=== PATIENT | male | born 1975 | race Two or more races ===

== ENCOUNTER 2021-03-16 21:34 | Emergency (ER) | payer OTHER ==
[~2021-03-16] VITALS: Ht 165.1 cm; Wt 90.0 kg
--- NOTE | 2021-03-16 21:50 | PHYS DOC ---
Adult General Chief Complaint Chief Complaint: FEVER HPI HPI Patient is a otherwise healthy 45-year-old male who presents from [facility], with [facility] for chief complaint of 2weeks shortness of breath. States over the last 2 weeks he has had feelings of shortness of breath and has had fevers around 101 101. States he was treated with Z-Keanu about a week ago but did not seem to help. Denies headache, pain or trouble swallowing, neck pain, chest pain, abdominal pain, nausea, vomiting, diarrhea, dysuria, hematuria or blood in the stool. Denies any alcohol or drug use. Denies any known ill contacts but states he is in [facility]. States he is eating and drinking normally for him. States he is making urine and stool normally for him. Denies any history of VTE. Denies any family history of heart attack or stroke at his age. Denies any history of smoking. Does endorse some dyspnea on exertion, but denies orthopnea, PND or edema. Review of Systems Review of Systems Review of systems otherwise unremarkable except noted in HPI Physical Exam Physical Exam Constitutional: Well developed, well nourished, no acute distress, non-toxic appearance. [] HENT: Normocephalic, atraumatic, bilateral external ears normal,oropharynx moist, no oral exudates, Eyes: conjunctiva normal, no discharge. [] Neck: Normal range of motion, no tenderness, supple, no stridor. [] Cardiovascular:Heart rate regular rhythm, no murmur [] Lungs & Thorax: Global, very mild rhonchi with end expiratory wheeze, tachypnea with saturations around 94% on room air Abdomen: soft, no tenderness, no masses, no pulsatile masses. [] Skin: Warm, dry, no erythema, no rash. [] Back: no CVA tenderness. [] Extremities: No tenderness, ROM intact, no edema. [] Neurologic: Alert and oriented X 3, normal motor function, normal sensory function, no focal deficits noted. [] Psychologic: Affect normal, mood normal. [] EKG EKG [] Radiology/Procedures Radiology/Procedures [] Heart Score C/O Chest Pain: No Risk Factors: Risk Factors: DM, Current or recent (<one month) smoker, HTN, HLP, family history of CAD, obesity. Risk Scores: Risk Factors: DM, Current or recent (<one month) smoker, HTN, HLP, family history of CAD, obesity. Course & Med Decision Making Course & Med Decision Making Patient is a 45-year-old male who presents with 2 weeks of shortness of breath Vital signs notable for fever, hypertension and tachycardia. Physical exam noted above. EKG noted above with no STEMI. Troponin normal. D-dimer normal. Given Tylenol, breathing treatment and steroids. Given cough syrup. Laboratory analysis not concerning. Chest x-ray with no obvious findings but appears abnormal. CT of the chest with areas of patchy groundglass opacities suggestive of multifocal pneumonitis with infectious or inflammatory etiology and mediastinal and bilateral axillary lymphadenopathy suggestive of something reactive, metastatic versus degenerative lymphoma. Indication for repeat CT or biopsy. Given patient's hypoxia/dyspnea on exertion with oxygen saturations drop in to 80% on room air when walking, and tachypnea with respiratory rate around 35 patient started on antibiotics for pneumonia, with initial rapid Covid swab negative. Discussed all findings with patient and recommended admission to the hospital for continued evaluation and treatment of his technical sepsis, secondary to probably viral or bacterial pneumonia not ruling out fungal or neoplasm. Patient grateful, verbalized understanding and agreed with plan of admission. No beds available at [facility] or . Patient accepted at [place]. [] Dragon Disclaimer Dragon Disclaimer This electronic medical record was generated, in whole or in part, using a voice recognition dictation system. Departure Departure: Impression: Primary Impression: Dyspnea on exertion Additional Impressions: Hypoxia Pneumonia Disposition: ADMITTED INPATIENT Admitting Physician: Leila Phelps Condition: STABLE Referrals: PCP,NO (PCP) Problem Qualifiers TURNER MERRITT MD Mar 16, 2021 21:50
[2021-03-16] MEDS ORDERED: IV RINGERS SOLUTION,LACTATED 1,000 ML IV ONE (22:00)
[2021-03-16] MEDS ORDERED: ACETAMINOPHEN 500 MG TABLET PO ONE (22:00)
[2021-03-16] MEDS ORDERED: guaiFENesin/CODEINE 100mg/10mg 5 ML LIQUID PO PRN (22:30)
[2021-03-16 22:40] LABS: BASO # 0.1 x10^3/uL (0.0-0.2); BASO % 1 % (0-3); EOS # 1.7 x10^3/uL (0.0-0.7); EOS % 15 % (0-3); HEMATOCRIT 44.2 % (39.0-53.0); HEMOGLOBIN 14.3 g/dL (13.0-17.5); LYMPH # 1.5 x10^3/uL (1.0-4.8); LYMPH % 13 % (24-48); MEAN CORPUSCULAR HEMOGLOBIN 26 pg (25-35); MEAN CORPUSCULAR HGB CONC 33 g/dL (31-37); MEAN CORPUSCULAR VOLUME 80 fL (79-100); MONO # 1.1 x10^3/uL (0.0-1.1); MONO % 10 % (0-9); NEUT # 6.9 x10^3uL (1.8-7.7); NEUT % 61 % (31-73); PLATELET COUNT 175 x10^3/uL (140-400); RED BLOOD COUNT 5.53 x10^6/uL (4.30-5.70); WHITE BLOOD COUNT 11.2 x10^3/uL (4.0-11.0)
[2021-03-16] MEDS ORDERED: IPRATRPIUM/ALBUTEROL 0.5/2.5MG 3 ML NEBU. NEB ONE (22:45)
[2021-03-16] MEDS ORDERED: DEXAMETHASONE 4 MG TABLET PO ONE (22:45)
[2021-03-16 22:52] LABS: CREATININE 0.9 mg/dL (0.7-1.3); GFR 90.4
[2021-03-16 23:02] LABS: ALBUMIN 3.7 g/dL (3.4-5.0); ALBUMIN/GLOBULIN RATIO 0.9 (1.0-1.7); MAGNESIUM 2.3 mg/dL (1.8-2.4); TOTAL BILIRUBIN 0.5 mg/dL (0.2-1.0); TOTAL PROTEIN 7.6 g/dL (6.4-8.2)
--- NOTE | 2021-03-17 00:06 | RAD ---
XR CHEST 1V 03/16/2021 11:09 PM INDICATION: Cough, fever COMPARISON: None available TECHNIQUE: Portable frontal view of the chest is provided. FINDINGS: The cardiomediastinal silhouette is within normal limits. Mild perihilar interstitial changes are not ed. There are no significant pleural effusions. There is no pulmonary vascular congestion. No pneumothora x. No suspicious osseous abnormality. IMPRESSION: Mild perihilar interstitial changes. Findings favor interstitial pneumonitis in the appropriate clini akbar setting. Short-term follow-up radiograph could be of benefit. Electronically signed by: Rhiannon Burnette MD (03/17/2021 12:04 AM) [facility]
[2021-03-17 00:10] VITALS: BP 157/88
--- NOTE | 2021-03-17 00:24 | RAD ---
PQRS Compliance Statement: One or more of the following individualized dose reduction techniques were utilized for this examinat ion: 1. Automated exposure control 2. Adjustment of the mA and/or kV according to patient size 3. Use of iterative reconstruction technique CT THORAX WO 03/16/2021 11:47 PM Indication: Shortness of breath, fever COMPARISON: None available. TECHNIQUE: Multiple axial CT images of the chest were obtained without intravenous contrast. Coronal and sagittal reformats were provided. FINDINGS: Thyroid gland is normal in appearance. Left axillary lymph nodes are borderline enlarged measuring up to 1.4 cm (series 2, image 39). Right axillary lymph nodes are enlarged measuring up to 1.4 cm (series 2, image 33). Right superior paratra cheal lymph node measures 1.2 cm. Precarinal lymph node measures 1.9 cm. AP window lymph node measure s 1.3 cm. No definite hilar lymphadenopathy. Left paraesophageal lymph node measures 0.7 cm (series 2 , image 47). Borderline lymphadenopathy identified at the neck base. Heart size is within normal limi ts. Thoracic aorta is normal in course and caliber. There is no significant pericardial effusion. Tho racic esophagus is normal in appearance. Anterior chest wall appears intact. No suspicious solid noncalcified pulmonary nodule. There are no pleural effusions, pulmonary vascular congestion or pneumothorax. Mild bronchial wall thickening compatible with nonspecific bronchitis. P atchy central glass opacities are identified, mild. Central airways are clear. There is an ill-defined hypoattenuating lesion within the right hepatic lobe measuring 4.0 x 4.1 cm ( 39 Hounsfield units). Cholecystectomy changes are present. No suspicious osseous abnormality. No paraspinal soft tissue mass. IMPRESSION: Mild central patchy ground glass opacities may reflect multifocal pneumonitis of infectious/inflammat ory etiology. Mediastinal and bilateral axillary lymphadenopathy may be reactive, metastatic versus degenerative ly mphoma. Three-month follow-up chest CT or tissue sampling can be of benefit as clinically warranted. PET CT could be of benefit. There is an ill-defined hypoattenuating lesion within the right hepatic lobe measuring 4.0 x 4.1 cm ( 39 Hounsfield units). This finding is indeterminate by noncontrast CT and further evaluation with abd ominal MRI with and without contrast is recommended. Electronically signed by: Rhiannon Burnette MD (03/17/2021 12:21 AMHerbert [facility]
--- NOTE | 2021-03-17 03:19 | EKG ---
[address] [address] Test Date: 2021-03-16 Test Time: 21:50:57 Pat Name: MAMADOU SPENCE Department: Room: Gender: M Filling Machine Operator: ALEX : 1975 Requested By: TURNER MERRITT Order Number: [id number] Reading MD: Luigi Lowry Measurements Intervals [place] Rate: 91 P: 30 WV: 154 QRS: -41 QRSD: 94 T: 17 QT: 340 QTc: 420 Interpretive Statements SINUS RHYTHM ABNORMAL LEFT AXIS DEVIATION LEFT ANTERIOR FASCICULAR BLOCK ABNORMAL ECG RI6.02 No previous ECG available for comparison Electronically Signed On 03-17-2021 12:41:55 CDT by Luigi Lowry
[2021-03-17 06:57] LABS: BILIRUBIN,URINE NEG (NEG); CLARITY,URINE HAZY; COLOR,URINE YELLOW; GLUCOSE,URINE NEG (NEG); NITRITE,URINE NEG (NEG); RBC,URINE 0 /HPF (0-2); UROBILINOGEN,URINE 0.2 mg/dL (0.2 mg/dL); WBC,URINE 0 /HPF (0-4)
[2021-03-17 06:58] LABS: AMORPHOUS SEDIMENT,UR PRESENT /HPF; BACTERIA,URINE FEW /HPF (0-FEW); SQUAMOUS EPITHELIAL CELL,UR OCC /LPF
[2021-03-17 07:32] LABS: BARBITURATES NEG (NEG); BENZODIAZEPINES NEG (NEG); CANNABINOIDS NEG (NEG); COCAINE NEG (NEG); METHADONE NEG (NEG); OPIATES NEG (NEG); PHENCYCLIDINE NEG (NEG)
[2021-03-17 07:34] LABS: AMPHETAMINE/METHAMPHETAMINE NEG (NEG)
== END 2021-03-17 02:07 | disposition short-term general hospital (02) ==
LOC: ER 21:34
DX: J18.9 Pneumonia, unspecified organism (principal); R09.02 Hypoxemia; R06.09 Other forms of dyspnea; Z20.822 Contact with and (suspected) exposure to COVID-19
CPT/HCPCS: 36415; 71045; 71250; 80053; 80307; 81001; 83605; 83735; 84484; 85025; 85379; 87040; 87426; 93005; 94640; 96361; 96365; 99285; C9803; J1956; J7120; J8540; U0003

== ENCOUNTER 2021-07-06 15:18 | Emergency (ER) | payer OTHER ==
[~2021-07-06] VITALS: Ht 162.6 cm; Wt 86.3 kg
[2021-07-06] MEDS ORDERED: IPRATRPIUM/ALBUTEROL 0.5/2.5MG 3 ML NEBU. NEB ONE ×2 (15:45→17:45)
--- NOTE | 2021-07-06 16:04 | PHYS DOC ---
Past History Past Surgical History: Other Additional Past Surgical Histo: LIPOMA REMOVAL (MCKENZIE ANAND APRN) Alcohol Use: None (MCKENZIE ANAND APRN) General Adult EDM: Chief Complaint: CONGESTION HPI: HPI: Patient is a 45-year-old male who presents to the emergency department for chronic cough and nasal drainage. Patient reports that he has had a clear/yellow productive cough with nasal drainage since February of last year after being diagnosed with pneumonia and an ICU stay. Patient reports the postnasal drainage is so severe it causes him to choke and causes a hoarse voi ce. Patient reports that he has had intermittent sinus infections. He reports taking Mucinex and Sudafed for his symptoms. He states that he has a sinus abnormality and has a CT scan ordered for his sinuses. Patient does use a CPAP as needed at night. Patient is also reporting loss of taste or smell but states that has been present since getting his [place] booster in January 2021. Patient denies any vomiting or chest pain. Does report occasional shortness of breath (MCKENZIE ANAND APRN) Review of Systems: Review of Systems: Constitutional: negative unless reported in HPI Eyes: negative unless reported in HPI HENT: negative unless reported in HPI Respiratory: negative unless reported in HPI Cardiovascular: negative unless reported in HPI GI: negative unless reported in HPI : negative unless reported in HPI Musculoskeletal: negative unless reported in HPI Integument: negative unless reported in HPI Neurologic: negative unless reported in HPI Endocrine: negative unless reported in HPI Lymphatic: negative unless reported in HPI Psychiatric: negative unless reported in HPI (MCKENZIE ANAND APRN) Current Medications: Current Meds: Current Medications Medications (Trade) Dose Ordered Sig/Frannie Start Time Stop Time Status Last Admin Dose Admin Albuterol/ Ipratropium (Duoneb) 3 ml 1X ONCE 07/06/21 15:45 07/06/21 15:46 UNV (MCKENZIE ANAND APRN) Allergies: Allergies: Allergies Coded Allergies Type Severity Reaction Last Updated Verified blue dye Allergy Severe anaphylaxis 07/06/21 Yes red dye Allergy Severe anaphylaxis 07/06/21 Yes (MCKENZIE ANAND APRN) Physical Exam: PE: Constitutional: Well developed, well nourished, no acute distress, non-toxic appearance. [] HENT: Normocephalic, atraumatic, bilateral external ears normal, post nasal drainage, no sinus pain with palpation, oropharynx moist, no oral exudates, nose normal. [] Eyes: PERRL, EOMI, conjunctiva normal, no discharge. [] Neck: Normal range of motion, no tenderness, supple, no stridor. [] Cardiovascular:Heart rate regular rhythm, no murmur [] Lungs & Thorax: wheezing noted throughout lung ordonez Abdomen: Bowel sounds normal, soft, no tenderness, no masses, no pulsatile masses. [] Skin: Warm, dry, no erythema, no rash. [] Back: Normal ROM Extremities: No tenderness, no cyanosis, no clubbing, ROM intact, no edema. [] Neurologic: Alert and oriented X 3, normal motor function, normal sensory function, no focal deficits noted. [] Psychologic: Affect normal, judgement normal, mood normal. [] (MCKENZIE ANAND APRN) Current Patient Data: Labs: Laboratory Tests Test 07/06/21 15:50 Influenza Type A (Rapid) Negative Influenza Type B (Rapid) Negative SARS-CoV-2 Antigen (Rapid) Negative Current Medications Medications (Trade) Dose Ordered Sig/Frannie Route PRN Reason Start Time Stop Time Status Last Admin Dose Admin Albuterol/ Ipratropium (Duoneb) 3 ml 1X ONCE NEB 07/06/21 15:45 07/06/21 15:51 DC 07/06/21 16:02 Albuterol Sulfate (Ventolin) 10 mg 1X ONCE CONT NEB 07/06/21 17:30 07/06/21 17:38 DC Albuterol/ Ipratropium (Duoneb) 3 ml 1X ONCE NEB 07/06/21 17:45 07/06/21 17:46 DC 07/06/21 17:41 Prednisone (Prednisone) 60 mg 1X ONCE PO 07/06/21 18:00 07/06/21 18:01 DC Vital Signs: Vital Signs Date Time Temp Pulse Resp B/P (MAP) Pulse Ox O2 Delivery O2 Flow Rate FiO2 07/06/21 15:35 98.2 82 20 134/80 (98) 96 Room Air (MCKENZIE ANAND APRN) EKG: EKG: [] (MCKENZIE ANAND APRN) Radiology/Procedures: Radiology/Procedures: []PROCEDURE: CHEST PA & LATERAL EXAM: Chest, 2 views. HISTORY: Cough. COMPARISON: 03/16/2021. FINDINGS: 2 views of the chest are obtained. There is no infiltrate, pleural infusion or pneumothorax. IMPRESSION: No acute pulmonary finding. Electronically signed by: Analilia Morales MD (07/06/2021 4:29 PM) [facility] DICTATED AND SIGNED BY: ANALILIA MORALES MD DATE: 07/06/21 1627 CC: MCKENZIE ANAND APRN; PCP,NO ~MTH0 0 (MCKENZIE ANAND APRN) Heart Score: C/O Chest Pain: No Risk Factors: Risk Factors: DM, Current or recent (<one month) smoker, HTN, HLP, family history of CAD, obesity. Risk Scores: Score 0 - 3: 2.5% MACE over next 6 weeks - Discharge Home Score 4 - 6: 20.3% MACE over next 6 weeks - Admit for Clinical Observation Score 7 - 10: 72.7% MACE over next 6 weeks - Early Invasive Strategies (MCKENZIE ANAND APRN) Course & Med Decision Making: Course & Med Decision Making Pertinent Labs and Imaging studies reviewed. (See chart for details) Patient presents to the ER with chronic clear/yellow productive cough and nasal congestion since being diagnosed with pneumonia in February of last year. Patient has post nasal drainage. And is noted to have wheezing throughout. Patient reports that he has been taking Mucinex, Sudafed for his symptoms. He reports that he has a sinus abnormality and has a CT of his sinuses ordered. Work-up in the ER consisted of a chest x-ray and Covid and influenza testing. Patient will be treated with a DuoNeb. Following 2 DuoNeb's, his symptoms have improved he is no longer wheezing. Vital signs stable. Patient was given a dose of steroid in the emergency department. He will be discharged home with a steroid. He will be referred to an ENT. He is advised to follow-up as previously scheduled for the CT scan of his sinuses. I discussed with patient all findings and diagnostic testing as well as the need to follow-up with PCP for further evaluation and treatment or return to the ER if any new or worsening symptoms. Strict return precautions were also discussed at length. Patient voiced understanding and agreement with the plan. Patient is hemodynamically stable at the time of disposition. (MCKENZIE ANAND APRN) Dragon Disclaimer: Dragon Disclaimer: This electronic medical record was generated, in whole or in part, using a voice recognition dictation system. (MCKENZIE ANAND GROCERY CLERK) Departure Departure: Impression: Primary Impression: Cough Disposition: 01 HOME / SELF CARE / HOMELESS Condition: GOOD Referrals: PCPMARCELO (PCP) Patient Instructions: Cough, Adult Additional Instructions: You were seen in the emergency department today for cough and nasal congestion. You can take Mucinex [id number] and use Flonase intranasal steroid spray for congestion. Please increase your fluids as this will thin your secretions. You are being discharged home with a steroid. Take as directed. You're also being discharged home with an albuterol inhaler that you can use for wheezing or shortness of breath. Follow-up with your primary care provider. Make sure that you follow-up for the CT scan of your sinuses as previously ordered. Return to the emergency department if you develop shortness of breath, chest pain, high fevers refractory to treatment, intractable nausea or vomiting or any new or worsening concerns. Scripts Albuterol Sulfate (PROAIR HFA INHALER) 8.5 Gm Hfa.aer.ad 2 PUFF IH PRN Q4-6HRS PRN for wheezing for 21 Days, #1 INHALER 0 Refills as needed for wheezing Prov: MCKENZIE ANAND APRN 07/06/21 Methylprednisolone (MEDROL) 4 Mg Tab.ds.pk 1 PKG PO UD for inflammation, #1 PKG 0 Refills Prov: MCKENZIE ANAND APRN 07/06/21 Discharge Summary Visit Information Final Diagnosis Problems Medical Problems: (1) Cough Status: Acute (GUERRERO MARISCAL MD) Brief Hospital Course Allergies Allergies Coded Allergies Type Severity Reaction Last Updated Verified blue dye Allergy Severe anaphylaxis 07/06/21 Yes red dye Allergy Severe anaphylaxis 07/06/21 Yes Vital Signs Vital Signs Date Time Temp Pulse Resp B/P (MAP) Pulse Ox O2 Delivery O2 Flow Rate FiO2 07/06/21 18:15 87 18 137/77 (97) 96 Room Air 07/06/21 15:35 98.2 Lab Results Laboratory Tests Test 07/06/21 15:50 Influenza Type A (Rapid) Negative (NEGATIVE) Influenza Type B (Rapid) Negative (NEGATIVE) SARS-CoV-2 Antigen (Rapid) Negative (NEGATIVE) Brief Hospital Course Mr. Turcios is a 46 old [sex] who presented with [ ] (GUERRERO MARISCAL MD) Discharge Information Dischare Medications Current Medications Albuterol/ Ipratropium (Duoneb) 3 ml 1X ONCE NEB Last administered on 07/06/21at 16:02; Start 07/06/21 at 15:45; Stop 07/06/21 at 15:51; Status DC Albuterol Sulfate (Ventolin) 10 mg 1X ONCE CONT NEB ; Start 07/06/21 at 17:30; Stop 07/06/21 at 17:38; Status DC Albuterol/ Ipratropium (Duoneb) 3 ml 1X ONCE NEB Last administered on 07/06/21at 17:41; Start 07/06/21 at 17:45; Stop 07/06/21 at 17:46; Status DC Prednisone (Prednisone) 60 mg 1X ONCE PO ; Start 07/06/21 at 18:00; Stop 07/06/21 at 18:01; Status DC Active Scripts Active Proair Hfa Inhaler (Albuterol Sulfate) 8.5 Gm Hfa.aer.ad 2 Puff IH PRN Q4-6HRS PRN 21 Days as needed for wheezing Medrol (Methylprednisolone) 4 Mg Tab.ds.pk 1 Pkg PO UD (GUERRERO MARISCAL MD) Attending Signature Attending Signature I have participated in the care of this patient and I have reviewed and agree with all pertinent clinical information above including history, exam, and recommendations. (GUERRERO MARISCAL MD) MCKENZIE ANAND APRN Jul 06, 2021 16:04 GUERRERO MARISCAL MD Jul 07, 2021 05:34
--- NOTE | 2021-07-06 16:31 | RAD ---
EXAM: Chest, 2 views. HISTORY: Cough. COMPARISON: 03/16/2021. FINDINGS: 2 views of the chest are obtained. There is no infiltrate, pleural infusion or pneumothorax . IMPRESSION: No acute pulmonary finding. Electronically signed by: Analilia Doe MD (07/06/2021 4:29 PM) [facility]
[2021-07-06 17:12] LABS: INFLUENZA A PATIENT NEGATIVE (NEGATIVE); INFLUENZA B PATIENT NEGATIVE (NEGATIVE)
[2021-07-06] MEDS ORDERED: ALBUTEROL SULFATE 2.5 MG/3 ML NEBU. CONT NEB ONE (17:30)
[2021-07-06] MEDS ORDERED: predniSONE 20 MG TABLET PO ONE (18:00)
[2021-07-06] MEDS ORDERED: METH4TAB2 PO (18:14)
[2021-07-06] MEDS ORDERED: ALBU2.5V8 IH (18:14)
[2021-07-06 18:15] VITALS: BP 137/77
== END 2021-07-06 18:19 | disposition home or self-care (01) ==
LOC: ER 15:18
DX: R05.3 Chronic cough (principal); R43.8 Other disturbances of smell and taste; R06.02 Shortness of breath; Z20.822 Contact with and (suspected) exposure to COVID-19; Z91.041 Radiographic dye allergy status
CPT/HCPCS: 71046; 87428; 94640; 99285

== ENCOUNTER 2021-08-04 16:22 | Emergency (ER) | payer OTHER ==
[~2021-08-04] VITALS: Ht 162.6 cm; Wt 86.3 kg
[~2021-08-04 16:22] MED LIST: ALBU2.5V8 IH; METH4TAB2 PO
[2021-08-04] MEDS ORDERED: ONDANSETRON PF 4 MG/2 ML VIAL. IVP ONE (17:00)
[2021-08-04] MEDS ORDERED: IV NORMAL SALINE 1,000ML 1,000 ML IV ONE ×2 (17:00→18:30)
[2021-08-04 17:53] LABS: CALCIUM 8.7 mg/dL (8.5-10.1); CREATININE 1.9 mg/dL (0.7-1.3); POTASSIUM 5.2 mmol/L (3.5-5.1)
[2021-08-04 17:59] LABS: ALBUMIN 1.8 g/dL (3.4-5.0); ALBUMIN/GLOBULIN RATIO 0.3 (1.0-1.7); MAGNESIUM 1.6 mg/dL (1.8-2.4); TOTAL BILIRUBIN 0.8 mg/dL (0.2-1.0); TOTAL PROTEIN 7.1 g/dL (6.4-8.2)
[2021-08-04 18:00] LABS: BASO # 0.1 x10^3/uL (0.0-0.2); BASO % 1 % (0-3); EOS % 1 % (0-3); HEMATOCRIT 42.6 % (39.0-53.0); HEMOGLOBIN 14.3 g/dL (13.0-17.5); LYMPH # 0.2 x10^3/uL (1.0-4.8); LYMPH % 2 % (24-48); MEAN CORPUSCULAR HEMOGLOBIN 26 pg (25-35); MEAN CORPUSCULAR HGB CONC 34 g/dL (31-37); MEAN CORPUSCULAR VOLUME 76 fL (79-100); MONO # 0.4 x10^3/uL (0.0-1.1); MONO % 4 % (0-9); NEUT # 8.4 x10^3uL (1.8-7.7); NEUT % 92 % (31-73); PLATELET COUNT 92 x10^3/uL (140-400); RED BLOOD COUNT 5.58 x10^6/uL (4.30-5.70); RED CELL DISTRIBUTION WIDTH 14.5 % (11.5-14.5); WHITE BLOOD COUNT 9.1 x10^3/uL (4.0-11.0)
[2021-08-04 18:10] LABS: PLT ESTIMATE DECREASED (ADEQUATE)
[2021-08-04] MEDS ORDERED: ACETAMINOPHEN 500 MG TABLET PO ONE (18:30)
[2021-08-04] MEDS ORDERED: diphenhydrAMINE 50 MG/ML VIAL IVP ONE (18:30)
[2021-08-04] MEDS ORDERED: DEXAMETHASONE SOD PHOS 10 MG/ML VIAL. IVP ONE (18:30)
--- NOTE | 2021-08-04 18:31 | PHYS DOC ---
Past History Additional Past Medical Histor: sinus infections (NEHEMIAS LIN) Past Surgical History: Other Additional Past Surgical Histo: LIPOMA REMOVAL (NEHEMIAS LIN) Alcohol Use: None (NEHEMIAS LIN) General Adult EDM: Chief Complaint: FLU SYMPTOM HPI: HPI: Patient is a 46 year old male who presents under police custody with shortness of breath, weakness, fever, nasal congestion/sinus infection and full body rash. He was admitted in February 2021 for respiratory failure. Patient states he was both flu and COVID-19 negative at that time. Recently, he has been treated with 3 different antibiotics for sinus infection without symptom relief. Additionally, he has diffuse body rash that is dark red and itchy that appeared approximately 3 days ago. Patient denies sputum production, chills, hematemesis, bloody stool. (NEHEMIAS LIN) Review of Systems: Review of Systems: Constitutional: See HPI Eyes: Denies change in visual acuity, visual field deficits or discharge HENT: See HPI Respiratory: See HPI Cardiovascular: Denies chest pain, palpitations or edema GI: See HPI : Denies dysuria or hematuria Musculoskeletal: Denies back pain or joint pain Integument: See HPI Neurologic: Denies headache, focal weakness or sensory changes (NEHEMIAS LIN) Current Medications: Current Meds: Current Medications Medications (Trade) Dose Ordered Sig/Frannie Route PRN Reason Start Time Stop Time Status Last Admin Dose Admin Sodium Chloride 1,000 ml @ 1,000 mls/hr 1X ONCE IV 08/04/21 17:00 08/04/21 17:59 DC 08/04/21 17:00 Ondansetron HCl (Zofran) 4 mg 1X ONCE IVP 08/04/21 17:00 08/04/21 17:17 DC 08/04/21 17:24 Dexamethasone Sodium Phosphate (Decadron) 10 mg 1X ONCE IVP 08/04/21 18:30 08/04/21 18:42 DC 08/04/21 18:56 Diphenhydramine HCl (Benadryl) 25 mg 1X ONCE IVP 08/04/21 18:30 08/04/21 18:42 DC 08/04/21 18:56 Sodium Chloride 1,000 ml @ 1,000 mls/hr 1X ONCE IV 08/04/21 18:30 08/04/21 19:29 DC 08/04/21 18:55 Acetaminophen (Tylenol) 1,000 mg 1X ONCE PO 08/04/21 18:30 08/04/21 18:42 DC 08/04/21 18:55 (NEHEMIAS LIN) Allergies: Allergies: Allergies Coded Allergies Type Severity Reaction Last Updated Verified blue dye Allergy Severe anaphylaxis 07/06/21 Yes red dye Allergy Severe anaphylaxis 07/06/21 Yes (NEHEMIAS LIN) Physical Exam: PE: Constitutional: Obese, increased work of breathing, slightly disheveled. HENT: Normocephalic, atraumatic, bilateral external ears normal, external nose without discharge or deformity. Eyes: PERRLA, EOMI, conjunctiva normal, no discharge. Neck: Normal range of motion, no stridor. Cardiovascular: Elevated heart rate with regular rhythm, no apparent murmur. Lungs & Thorax: Wheezing appreciated in the base of the left lung, otherwise lung sounds clear to auscultation. Skin: Patient has diffuse body rash consistent with purpura with confluence. Extremities: No tenderness, no cyanosis, no clubbing, ROM intact, no edema. Neurologic: Alert and oriented x4, no focal deficits noted. (NEHEMIAS LIN) Current Patient Data: Labs: Laboratory Tests Test 08/04/21 17:16 White Blood Count 9.1 x10^3/uL (4.0-11.0) Red Blood Count 5.58 x10^6/uL (4.30-5.70) Hemoglobin 14.3 g/dL (13.0-17.5) Hematocrit 42.6 % (39.0-53.0) Mean Corpuscular Volume 76 fL (79-100) L Mean Corpuscular Hemoglobin 26 pg (25-35) Mean Corpuscular Hemoglobin Concent 34 g/dL (31-37) Red Cell Distribution Width 14.5 % (11.5-14.5) Platelet Count 92 x10^3/uL (140-400) L Neutrophils (%) (Auto) 92 % (31-73) H Lymphocytes (%) (Auto) 2 % (24-48) L Monocytes (%) (Auto) 4 % (0-9) Eosinophils (%) (Auto) 1 % (0-3) Basophils (%) (Auto) 1 % (0-3) Neutrophils # (Auto) 8.4 x10^3uL (1.8-7.7) H Lymphocytes # (Auto) 0.2 x10^3/uL (1.0-4.8) L Monocytes # (Auto) 0.4 x10^3/uL (0.0-1.1) Eosinophils # (Auto) 0.0 x10^3/uL (0.0-0.7) Basophils # (Auto) 0.1 x10^3/uL (0.0-0.2) Platelet Estimate Decreased (ADEQUATE) Large Platelets Present Prothrombin Time 13.4 SEC (9.4-11.4) H Prothrombin Time INR 1.3 (0.9-1.1) H Activated Partial Thromboplast Time 32 SEC (23-33) Sodium Level 127 mmol/L (136-145) L Potassium Level 5.2 mmol/L (3.5-5.1) H Chloride Level 94 mmol/L (98-107) L Carbon Dioxide Level 24 mmol/L (21-32) Anion Gap 9 (6-14) Blood Urea Nitrogen 28 mg/dL (8-26) H Creatinine 1.9 mg/dL (0.7-1.3) H Estimated GFR (Cockcroft-Gault) 38.0 BUN/Creatinine Ratio 15 (6-20) Glucose Level 93 mg/dL (70-99) Calcium Level 8.7 mg/dL (8.5-10.1) Magnesium Level 1.6 mg/dL (1.8-2.4) L Total Bilirubin 0.8 mg/dL (0.2-1.0) Aspartate Amino Transferase (AST) 35 U/L (15-37) Alanine Aminotransferase (ALT) 75 U/L (16-63) H Alkaline Phosphatase 156 U/L (46-116) H Total Protein 7.1 g/dL (6.4-8.2) Albumin 1.8 g/dL (3.4-5.0) L Albumin/Globulin Ratio 0.3 (1.0-1.7) L Lipase 25 U/L (73-393) L Vital Signs: Vital Signs Date Time Temp Pulse Resp B/P (MAP) Pulse Ox O2 Delivery O2 Flow Rate FiO2 08/04/21 20:53 85 116/69 (85) 95 Nasal Cannula 4.0 08/04/21 18:41 115 24 138/97 (111) 94 Nasal Cannula 4.0 08/04/21 18:13 110 24 124/73 (90) 94 Nasal Cannula 4.0 08/04/21 17:12 107 24 134/45 (74) 94 Nasal Cannula 4.0 08/04/21 16:22 101.8 102 20 130/87 (101) 90 Room Air 08/04/21 16:22 101.8 102 130/87 (101) 90 (NEHEMIAS LIN) EKG: EKG: EKG Interpreted by Dr. King at 1658: Sinus tachycardia at 102 bpm with no ectopic beats. Low limb lead voltage. QT 314 ms/QTc 413 ms. No STEMI. (NEHEMIAS LIN) Radiology/Procedures: Radiology/Procedures: PROCEDURE: CHEST PA & LATERAL XR CHEST 2V History: Reason: respiratory issues since 01/05, SOB / Spl. Instructions: / History: Comparison: July 06, 2021 Findings: Mild multifocal opacities bilaterally. No pleural effusion. No pneumothorax. Normal heart size. Chronic right clavicular fracture. Impression: 1. Mild multifocal ill-defined opacities bilaterally, may represent infection including viral pneumonia. Electronically signed by: Catarino Vogt DO (08/04/2021 6:50 PM) [facility] (NEHEMIAS LIN) Heart Score: C/O Chest Pain: No (NEHEMIAS LIN) Course & Med Decision Making: Course & Med Decision Making Pertinent Labs and Imaging studies reviewed. (See chart for details) Patient is a 46-year-old male who presents to the emergency department in police custody with complaints of shortness of breath, nasal congestion, fever, nausea and full body rash. Patient's pulmonary history is chronic at this point. Work-up today includes labs, chest x-ray, EKG, urinalysis. Work-up today reveals isolated thrombocytopenia at 92. This explains the purpuric rash noted on exam. Patient is saturating mid 90s on 4 L nasal cannula oxygen. Spoke with Dr. Anna, hospitalist here at [facility], who advises he be transferred to a hospital with higher level of care including pulmonology and hematology. Patient gladly accepted by Dr. Arambula at [facility] for admission. Patient is hemodynamically stable at time of transfer. (NEHEMIAS LIN) Dragon Disclaimer: Dragon Disclaimer: This electronic medical record was generated, in whole or in part, using a voice recognition dictation system. (NEHEMIAS LIN) Departure Departure: Impression: Primary Impression: Acute respiratory failure with hypoxia Additional Impression: Purpura, thrombocytopenic Disposition: 02 SHORT TERM HOSPITAL Condition: GUARDED Referrals: PCP,NO (PCP) Attending Signature Attending Signature I have reviewed the PA/ENVIRONMENTAL QUALITY ANALYST's note and plan of care. I was available for consultation as needed during the patient's visit in the emergency department. I agree with the clinical impression, plan, and disposition. (CATERINA KING DO) NEHEMIAS LIN Aug 04, 2021 18:31 CATERINA KING DO Aug 05, 2021 01:02
--- NOTE | 2021-08-04 18:52 | RAD ---
XR CHEST 2V History: Reason: respiratory issues since 01/05, SOB / Spl. Instructions: / History: Comparison: July 06, 2021 Findings: Mild multifocal opacities bilaterally. No pleural effusion. No pneumothorax. Normal heart size. Chron ic right clavicular fracture. Impression: 1. Mild multifocal ill-defined opacities bilaterally, may represent infection including viral pneumo nba. Electronically signed by: Catarino Vogt DO (08/04/2021 6:50 PM) [facility]
--- NOTE | 2021-08-04 19:16 | EKG ---
[address] [address] Test Date: 2021-08-04 Test Time: 16:54:07 Pat Name: MAMADOU SPENCE Department: Room: Gender: M Filler Mixer: REGAN : 1975 Requested By: CATERINA KING Order Number: [id number] Reading MD: Measurements Intervals [place] Rate: 102 P: 35 NH: 140 QRS: 49 QRSD: 86 T: 13 QT: 314 QTc: 413 Interpretive Statements SINUS TACHYCARDIA LOW LIMB LEAD VOLTAGE NO SPECIFIC ECG ABNORMALITIES RI6.01 No previous ECG available for comparison
[2021-08-04 19:27] LABS: INFLUENZA A PATIENT NEGATIVE (NEGATIVE); INFLUENZA B PATIENT NEGATIVE (NEGATIVE)
[2021-08-04 20:53] VITALS: BP 116/69
[2021-08-05] MEDS ORDERED: MAGNESIUM CHLORIDE ER 64 MG TABLET.ER PO SCH (09:00)
== END 2021-08-04 22:40 | disposition short-term general hospital (02) ==
LOC: ER 16:22 → EEVIPCON 16:22 → ER 22:40
DX: J96.01 Acute respiratory failure with hypoxia (principal); D69.49 Other primary thrombocytopenia; Z20.822 Contact with and (suspected) exposure to COVID-19; Z91.041 Radiographic dye allergy status
CPT/HCPCS: 36415; 71046; 80053; 83690; 83735; 85025; 85610; 85730; 87428; 93005; 96361; 96374; 96375; 99285; C9803; J1100; J1200; J2405; J7030; U0003